=== PATIENT | male | born 1980 | race Caucasian/White ===

== ENCOUNTER → 2020-07-13 | Outpatient (CLI) | payer BC ==
[~2020-07-13] MED LIST: ACET325T9 PO; CEPH-264 PO; CYCL10TA2 PO; DOCU-109 PO; GABA300C18 PO; HYDR-2761 PO; MELO15TA23 PO; NAPR-514 PO; ONDA8TAB9 PO; OXYC-325 PO
== END | disposition home or self-care (01) ==
LOC: MERGE 14:00 → LAB 14:00
PROVIDERS: ATTEND Orthopaedic Surgery Sports Medicine
DX: Z20.828 Contact with and (suspected) exposure to other viral communicable diseases (principal)
CPT/HCPCS: U0003-CS

== ENCOUNTER 2020-07-18 06:09 | Day surgery (SDC) | payer BC ==
[~2020-07-18] VITALS: Ht 180.3 cm; Wt 90.0 kg
[~2020-07-18 06:09] MED LIST changes: -CEPH-264 PO; -DOCU-109 PO; -ONDA8TAB9 PO; -OXYC-325 PO
[2020-07-18] MEDS ORDERED: DEXAMETHASONE SOD PHOS 20 MG/5 ML VIAL. ONE (06:58)
[2020-07-18] MEDS ORDERED: ROPIVacaine 0.5% PF 20 ML VIAL. ONE (06:58)
[2020-07-18] MEDS ORDERED: IV RINGERS,LACTATED 1000ML 1,000 ML IV SCH (07:00)
[2020-07-18] MEDS ORDERED: HYDROmorphone 2 MG/ML VIAL IV PRN (07:00)
[2020-07-18] MEDS ORDERED: fentaNYL PF VIAL 100 MCG/2 ML VIAL IV PRN ×2 (07:00)
[2020-07-18] MEDS ORDERED: PROCHLORPERAZINE 10 MG/2 ML VIAL. IV PRN (07:00)
[2020-07-18] MEDS ORDERED: MORPHINE SULFATE 2 MG/ML VIAL. IV PRN (07:00)
[2020-07-18] MEDS ORDERED: LIDOCAINE 1% PF 2 ML VIAL. ID PRN (07:00)
[2020-07-18] MEDS ORDERED: ONDANSETRON PF 4 MG/2 ML VIAL. IV PRN (07:00)
[2020-07-18] MEDS ORDERED: MIDAZOLAM HCL/PF 2 MG/2 ML VIAL. ONE (07:03)
[2020-07-18] MEDS ORDERED: PROPOFOL 10 MG/ML (20ML) VIAL. IV ONE (07:04)
[2020-07-18] MEDS ORDERED: LIDOCAINE 2% PF 5 ML VIAL. ONE (07:04)
[2020-07-18] MEDS ORDERED: SUCCINYLCHOLINE 200 MG/10 ML VIAL. ONE (07:05)
[2020-07-18] MEDS ORDERED: ROCURONIUM 50 MG/5 ML VIAL. ONE (07:05)
[2020-07-18] MEDS ORDERED: EPINEPHrine VIAL 30 MG/30 ML VIAL ONE (07:16)
[2020-07-18] MEDS ORDERED: BUPIVACAINE MPF 0.5% 30 ML VIAL. ONE (07:16)
[2020-07-18] MEDS ORDERED: LIDOCAINE 1% PF 30 ML VIAL. ONE (07:16)
[2020-07-18] MEDS ORDERED: fentaNYL PF VIAL 100 MCG/2 ML VIAL ONE (07:35)
--- NOTE | 2020-07-18 07:44 | DISCH ---
DISCHARGE INSTRUCTIONS Condition on Discharge Condition on Discharge: Stable Activity After Discharge Activity Instructions for Disc: Other, see below Other activity instructions: arm ro remain in sling Bathing Instructions: Shower-keep dressing dry Weight Bearing Status after Di: Non weight bearing Diet after Discharge Diet after Discharge: Regular Wound Incision Care Wound/Incision Care: Ice to area for comfort, Keep wound/cast CDI Other wound/incision instructi: ok to change dressing after [address] after DC Call your doctor for: Concerns you may have Follow-Up Follow up with: Hina in 2wks LEONARDO MÁRQUEZ II, MD Jul 18, 2020 07:43
[2020-07-18] MEDS ORDERED: GLYCOPYRROLATE 1 MG/5 ML VIAL. ONE (08:11)
[2020-07-18] MEDS ORDERED: ONDANSETRON PF 4 MG/2 ML VIAL. ONE (08:12)
[2020-07-18] MEDS ORDERED: NEOSTIGMINE METHYLSULFATE 5 MG/5 ML SYRINGE. ONE (08:12)
--- NOTE | 2020-07-18 08:58 | PDOC4 ---
Operative Note Operative Note Date of procedure: 07/18/2020 Surgeon: Harry Márquez Meal Temperer: Juan Carlos Govea Preoperative diagnosis: Right shoulder anterior labral tear Postop diagnosis: Same Procedure performed: Arthroscopic right shoulder anterior labral repair Anesthesia: General plus regional nerve block Findings: Patient had about a 1 cm tear around the 3 o'clock position at his anterior labrum. His glenohumeral cartilage was unremarkable. Remainder of his labrum was intact including at the biceps anchor. Blood loss: 10 mL Components inserted: [employer] Suturefix anchors, 1.7 mm, x2 Complications: None Reason for procedure: Patient is a very pleasant 40-year-old gentleman with shoulder pain. He had not had complaints of instability just pain. His clinical and radiographic examination including MRI were consistent with his preoperative diagnosis and after failure of conservative therapies, we had a discussion of the risks, benefits, and alternatives and the patient wished to proceed. Description of procedure: Patient was greeted in the preoperative area by myself or the correct extremity was verified and marked. He is taken to the operative suite and his antibiotics were started as he was brought back. Once in the operating, he was transferred gently supine to the operating table and secured to bed with all pressure points padded after being placed in the lateral decubitus position with the right side up. Axillary roll was used. He was secured to the bed with a beanbag. Down pressure points were padded. After this. We proceeded to prep and drape his right upper extremity and shoulder girdle in our usual sterile fashion and conducted our standard preoperative timeout. Ioban was used at the periphery of the drapes. After this, I palpated marked surface anatomy and used a spinal needle to localize a posterior superior portal and incised skin and in accordance with this. I then placed my blunt arthroscopic trocar into the glenohumeral joint. I then used a spinal needle to place an anteroinferior and steven-superior portals, placing cannulas at both. I then placed a cannula in the posterior superior portal. I then conducted my diagnostic arthroscopy with above-noted findings. After inspecting his labrum, there was a tear around the 3 o'clock position so I used a periosteal elevator to prepare this area, lengthening it a little bit proximally and distally. I then carefully prepared the repair site with my shaver, taking care not to decorticate. I then placed a suture anchor, shuttling one limb through with a Pantea suture passing device. I then tied this first anchor down using arthroscopic knot tying techniques and repeated this for a second anchor proximal to it. The tear was stable to probing. I then perform repeated aspiration maneuvers to remove any loose debris using my shaver. Given the location of the tear, and his overall clinical picture, I did not feel it necessary to incorporate a capsulorrhaphy for this patient. At the conclusion, the excess arthroscopic fluid and instrumentation was removed from his shoulder. Portals were then closed with simple interrupted 3-0 nylon. Sterile bulky dressing was applied after his shoulder and arm were cleansed and dried. He then had a abduction pillow sling applied. He was laid supine and transferred gently supine to the recovery room cart and taken to PACU in stable and e xtubated condition. Postoperative plan is to discharge him home, nonweightbearing. We will get him set up for physical therapy. I will see him back in 2 weeks, sooner should a problem arise HARRY MÁRQUEZ II, MD Jul 18, 2020 08:58
[2020-07-18] MEDS ORDERED: ONDA8TAB9 PO (09:10)
[2020-07-18] MEDS ORDERED: OXYC-325 PO (09:10)
[2020-07-18] MEDS ORDERED: DOCU-109 PO (09:11)
[2020-07-18] MEDS ORDERED: oxyCODONE/APAP 5/325 1 TAB TABLET PO ONE (09:15)
[2020-07-18 09:21] VITALS: BP 129/72
== END 2020-07-18 10:00 | disposition home or self-care (01) ==
LOC: SURG 06:09
PROVIDERS: ATTEND Orthopaedic Surgery Sports Medicine
DX: S43.491A Other sprain of right shoulder joint, initial encounter (principal); F17.210 Nicotine dependence, cigarettes, uncomplicated; Z79.899 Other long term (current) drug therapy; Z88.2 Allergy status to sulfonamides; X58.XXXA Exposure to other specified factors, initial encounter; Y93.89 Activity, other specified; Y92.89 Other specified places as the place of occurrence of the external cause; Y99.8 Other external cause status
CPT/HCPCS: 29806; 36415; 82306; A7015; C1713; C1782; J0171; J0330; J0690; J1100; J2250; J2405; J2704; J2710; J2795; J3010; J3490; J7120

== ENCOUNTER 2020-07-29 10:03 | Emergency (ER) | payer BC ==
[~2020-07-29] VITALS: Ht 180.3 cm; Wt 89.9 kg
[~2020-07-29 10:03] MED LIST changes: +DOCU-109 PO; +ONDA8TAB9 PO; +OXYC-325 PO
[2020-07-29 10:23] VITALS: BP 119/72
[2020-07-29] MEDS ORDERED: CEPH-264 PO (10:33)
--- NOTE | 2020-07-29 10:36 | PHYS DOC ---
Past Medical History Past Medical History: No Pertinent History, Other Additional Past Medical Histor: HSV Past Surgical History: No Surgical History Smoking Status: Current Every Day Smoker Alcohol Use: None Drug Use: None General Adult EDM: Chief Complaint: POST-OP PROBLEM HPI: HPI: The history was obtained from the patient. Patient is a 40-year-old male with PMH recent right rotator cuff surgery who presents with a chief complaint of redness and pain to the right axilla region. Patient states 2 weeks ago he had a right rotator cuff repair. He states over the past few days he has noted some tenderness and redness to his right axilla. He states he noticed some raised bumps. Denies any drainage. Denies fevers or vomiting. States that he is limited in range of motion of his right upper extremity due to the recent surgery. He states he does have follow-up appointment with his orthopedic surgeon in 2 days. Denies history of MRSA or IV drug use. No other complaints. Review of Systems: Review of Systems: Constitutional: Denies fever or chills. [] Eyes: Denies change in visual acuity. [] HENT: Denies nasal congestion or sore throat. [] Respiratory: Denies cough or shortness of breath. [] Cardiovascular: Denies chest pain or edema. [] GI: Denies abdominal pain, nausea, vomiting, bloody stools or diarrhea. [] : Denies dysuria. [] Musculoskeletal: Denies back pain or joint pain. [] Integument: Positive for rash Neurologic: Denies headache, focal weakness or sensory changes. [] Endocrine: Denies polyuria or polydipsia. [] Lymphatic: Denies swollen glands. [] Psychiatric: Denies depression or anxiety. [] Heart Score: Risk Factors: Risk Factors: DM, Current or recent (<one month) smoker, HTN, HLP, family history of CAD, obesity. Risk Scores: Score 0 - 3: 2.5% MACE over next 6 weeks - Discharge Home Score 4 - 6: 20.3% MACE over next 6 weeks - Admit for Clinical Observation Score 7 - 10: 72.7% MACE over next 6 weeks - Early Invasive Strategies Allergies: Allergies: Allergies Coded Allergies Type Severity Reaction Last Updated Verified Sulfa (Sulfonamide Antibiotics) Allergy Unknown 07/18/20 Yes Physical Exam: PE: Constitutional: Well developed, well nourished, no acute distress, non-toxic appearance. [] HENT: Normocephalic, atraumatic, bilateral external ears normal, oropharynx m oist, no oral exudates, nose normal. [] Eyes: PERRLA, EOMI, conjunctiva normal, no discharge. [] Neck: Normal range of motion, no tenderness, supple, no stridor. [] Cardiovascular:Heart rate regular rhythm, no murmur [] Lungs & Thorax: Bilateral breath sounds clear to auscultation [] Abdomen: soft, no tenderness, no masses, no pulsatile masses. [] Skin: Right axillary region with mildly tender nodules with mild overlying erythema in the right axillary region. No palpable areas of fluctuance noted. No active drainage appreciated. No crepitus palpated. Back: No tenderness, no CVA tenderness. [] Extremities: No tenderness, no cyanosis, no clubbing, ROM intact, no edema. [] Neurologic: Alert and oriented X 3, normal motor function, normal sensory function, no focal deficits noted. [] Psychologic: Affect normal, judgement normal, mood normal. [] Current Patient Data: Vital Signs: Vital Signs Date Time Temp Pulse Resp B/P (MAP) Pulse Ox O2 Delivery O2 Flow Rate FiO2 07/29/20 10:23 98.5 80 18 119/72 (88) 99 Room Air 98.5 EKG: EKG: [] Radiology/Procedures: Radiology/Procedures: [] Course & Med Decision Making: Course & Med Decision Making Pertinent Labs and Imaging studies reviewed. (See chart for details) [] Patient is a 40-year-old male with a recent medical history of right rotator cuff surgery who presents with chief complaint of redness and swelling to the right axillary region. Clinical exam consistent with hidradenitis suppurativa. No signs of drainable fluid collection on examination. He is likely experiencing symptoms due to his limited mobility of his right upper extremity. He will be given oral Keflex. He states he has follow-up with his orthopedic surgeon in 2 days. Return precautions discussed and understood. Encouraged to follow-up with his orthopedic surgeon at his regularly scheduled appointment as well as primary care physician in the next 2 to 3 days. Stable for discharge home. Hardy Disclaimer: Hardy Disclaimer: This electronic medical record was generated, in whole or in part, using a voice recognition dictation system. Departure Departure Impression: Primary Impression: Acute folliculitis Disposition: HOME, SELF-CARE Condition: STABLE Referrals: RACH ANDERSON MD (PCP) Patient Instructions: Cellulitis, Hidradenitis Suppurativa, Sweat Gland Abscess Additional Instructions: Please follow-up with your fish hatchery specialist in 2 days at your regularly scheduled appointment. Please follow-up with your primary care physician in the next 2 to 3 days. Scripts Cephalexin (KEFLEX) 500 Mg Capsule 1 CAP PO QID for 7 Days, #28 CAP 0 Refills Prov: ARI GOLDBERG DO 07/29/20 Justicifation of Admission Dx: Justifications for Admission: Justification of Admission Dx: N/A ARI GOLDBERG DO Jul 29, 2020 10:36
== END 2020-07-29 10:48 | disposition home or self-care (01) ==
LOC: ER 10:03
DX: L73.8 Other specified follicular disorders (principal); M79.621 Pain in right upper arm; R21 Rash and other nonspecific skin eruption; F17.200 Nicotine dependence, unspecified, uncomplicated; Z88.2 Allergy status to sulfonamides
CPT/HCPCS: 99283